=== PATIENT | female | born 1960 | race Caucasian/White ===

== ENCOUNTER 2021-02-28 12:07 | Day surgery (SDC) | payer MEDICARE ==
[~2021-02-28] VITALS: Ht 160 cm; Wt 56.0 kg
[~2021-02-28 12:07] MED LIST: ALBU90OI INH; AMLO10 PO; CLON.5 PO; Calcium Carbon500 MG PO; LEVOTHYROXINE PO; MONT10T PO; Nexium40 MG PO; PREG75 PO; RINVOQ ER15 MG PO; RISE35 PO; TRAZ50 PO; ZYRTEC10 M2 PO
== END 2021-02-28 15:02 | disposition home or self-care (01) ==
LOC: ORSCSDS 12:07
PROVIDERS: Internal Medicine Gastroenterology
PROC: 0DB98ZX Excision of Duodenum, Via Natural or Artificial Opening Endoscopic, Diagnostic (ICD-10-PCS; principal; 2021-02-28 13:30)
PROC: 0DBK8ZX Excision of Ascending Colon, Via Natural or Artificial Opening Endoscopic, Diagnostic (ICD-10-PCS; principal; 2021-02-28 13:30)
PROC: 0DBE8ZX Excision of Large Intestine, Via Natural or Artificial Opening Endoscopic, Diagnostic (ICD-10-PCS; principal; 2021-02-28 13:30)
PROC: 0DB68ZX Excision of Stomach, Via Natural or Artificial Opening Endoscopic, Diagnostic (ICD-10-PCS; principal; 2021-02-28 13:30)
DX: K21.9 Gastro-esophageal reflux disease without esophagitis (principal); R19.4 Change in bowel habit; D12.2 Benign neoplasm of ascending colon; K20.80 Other esophagitis without bleeding; I10 Essential (primary) hypertension; K64.8 Other hemorrhoids; K44.9 Diaphragmatic hernia without obstruction or gangrene; M06.9 Rheumatoid arthritis, unspecified; F17.210 Nicotine dependence, cigarettes, uncomplicated; Z79.899 Other long term (current) drug therapy
CPT/HCPCS: 88305; 88342; J2250; J2704; J7120

== ENCOUNTER 2022-02-04 10:34 | Emergency (ER) | payer MEDICARE ==
[~2022-02-04] VITALS: Ht 160 cm; Wt 61.2 kg
[2022-02-04] MEDS ORDERED: MONT4 PO (11:18)
[2022-02-04] MEDS ORDERED: PAROEX473 ML MM (11:18)
[2022-02-04] MEDS ORDERED: TRAM50 (11:18)
[2022-02-04] MEDS ORDERED: Atarax10 MG PO (11:20)
[2022-02-04] MEDS ORDERED: PILO5 PO (11:21)
[2022-02-04 12:15] LABS: Free Thyroxine 0.99 ng/dL (0.70-1.60)
[2022-02-04 12:19] LABS: Albumin, Blood 3.9 g/dL (3.4-5.0); Bilirubin, Total 0.3 mg/dL (0.1-1.0); Bun/Creatinine Ratio 20.3 (12.0-20.0); Creatinine, Blood 0.84 mg/dL (0.40-1.00); Potassium, Blood 3.6 mmol/L (3.5-5.5); Thyroid Stimulating Hormone 2.82 uIU/mL (0.360-4.800); Total Protein, Blood 7.9 g/dL (6.4-8.2)
[2022-02-04 13:37] LABS: BASOPHILS ABSOLUTE AUTO 0.04 K/mm3 (0.00-0.23); BASOPHILS PERCENT AUTO 1 % (0-2); EOSINOPHILS ABSOLUTE AUTO 0.08 K/mm3 (0.00-0.68); EOSINOPHILS PERCENT AUTO 1 % (0-6); Hematocrit 35.1 % (33.0-51.0); IMMATURE GRAN ABSOLUTE AUTO 0.01 K/mm3 (0.00-0.10); IMMATURE GRAN PERCENT AUTO 0 % (0-1); LYMPHOCYTES ABSOLUTE AUTO 2.26 K/mm3 (0.84-5.20); LYMPHOCYTES PERCENT AUTO 41 % (21-46); MONOCYTES ABSOLUTE AUTO 0.52 K/mm3 (0.16-1.47); MONOCYTES PERCENT AUTO 9 % (4-13); Mean Corpuscular HGB 28.2 pg (26.0-34.0); Mean Corpuscular HGB Conc 34.2 g/dL (31.5-36.5); Mean Corpuscular Volume 82 fL (80-100); Mean Platelet Volume 10.6 fL (9.1-12.4); NEUTROPHILS ABSOLUTE AUTO 2.64 K/mm3 (1.96-9.15); NEUTROPHILS PERCENT AUTO 48 % (41-73); Platelet Count 455 K/mm3 (150-400); Red Blood Cell Count 4.26 M/mm3 (3.80-5.20); White Blood Cell Count 5.55 K/mm3 (4.00-11.30)
== END 2022-02-04 14:16 | disposition home or self-care (01) ==
LOC: ER 10:34
PROVIDERS: Student in an Organized Health Care Education/Training Program
DX: G89.29 Other chronic pain (principal); E86.0 Dehydration; M35.00 Sjogren syndrome, unspecified; K59.00 Constipation, unspecified; I10 Essential (primary) hypertension; F41.9 Anxiety disorder, unspecified; F17.210 Nicotine dependence, cigarettes, uncomplicated; Z88.6 Allergy status to analgesic agent; Z88.8 Allergy status to other drugs, medicaments and biological substances; Z79.899 Other long term (current) drug therapy
CPT/HCPCS: 36415; 80053; 84439; 84443; 85025; A9270; J7030

== ENCOUNTER 2023-02-08 18:45 | Emergency (ER) | payer MEDICARE ==
[~2023-02-08] VITALS: Ht 162.6 cm; Wt 65.3 kg
[2023-02-08 20:15] VITALS: BP 137/74
== END 2023-02-08 20:39 | disposition home or self-care (01) ==
LOC: ER 18:45
DX: R56.9 Unspecified convulsions (principal); I10 Essential (primary) hypertension; F17.210 Nicotine dependence, cigarettes, uncomplicated; Z79.899 Other long term (current) drug therapy
CPT/HCPCS: 93005; 93010; 96365; 96375; 99284-25; J1953; J2060; J7030

== ENCOUNTER → 2023-02-08 | Outpatient (CLI) | payer MEDICARE ==
[~2023-02-08] MED LIST changes: +Atarax10 MG PO; +LEVE500 PO; +MONT4 PO; +PAROEX473 ML MM; +PILO5 PO; +TRAM50
[2023-02-08 18:51] LABS: BASOPHILS ABSOLUTE AUTO 0.03 K/mm3 (0.00-0.23); BASOPHILS PERCENT AUTO 1 % (0-2); EOSINOPHILS ABSOLUTE AUTO 0.04 K/mm3 (0.00-0.68); EOSINOPHILS PERCENT AUTO 1 % (0-6); Hematocrit 34.2 % (33.0-51.0); Hemoglobin 12.3 g/dL (11.5-16.0); IMMATURE GRAN ABSOLUTE AUTO 0.01 K/mm3 (0.00-0.10); IMMATURE GRAN PERCENT AUTO 0 % (0-1); LYMPHOCYTES ABSOLUTE AUTO 2.23 K/mm3 (0.84-5.20); LYMPHOCYTES PERCENT AUTO 39 % (21-46); MONOCYTES ABSOLUTE AUTO 0.74 K/mm3 (0.16-1.47); MONOCYTES PERCENT AUTO 13 % (4-13); Mean Corpuscular HGB 30.8 pg (26.0-34.0); Mean Corpuscular Volume 86 fL (80-100); NEUTROPHILS ABSOLUTE AUTO 2.68 K/mm3 (1.96-9.15); NEUTROPHILS PERCENT AUTO 47 % (41-73); Platelet Count 412 K/mm3 (150-400); RDW Coefficient Variation 18.3 % (11.7-14.2); RDW Standard Deviation 56.3 fL (35.1-46.3); White Blood Cell Count 5.73 K/mm3 (4.00-11.30)
[2023-02-08 18:55] LABS: Albumin, Blood 3.9 g/dL (3.4-5.0); Bilirubin, Total 0.4 mg/dL (0.1-1.0); Bun/Creatinine Ratio 7.8 (12.0-20.0); Calcium, Blood 9.5 mg/dL (8.5-10.1); Creatinine, Blood 0.9 mg/dL (0.40-1.00); Globulin, Blood 3.8 g/dL (2.2-4.0); Potassium, Blood 3.3 mmol/L (3.5-5.5); Total Protein, Blood 7.7 g/dL (6.4-8.2)
== END | disposition home or self-care (01) ==
LOC: LAB 18:40 → LAB SHORT 18:40
PROVIDERS: Emergency Medicine
DX: R51.9 Headache, unspecified (principal); Z72.89 Other problems related to lifestyle
CPT/HCPCS: 80053; 85025; G0480

== ENCOUNTER 2023-07-22 14:15 | Emergency (ER) | payer MEDICARE ==
[~2023-07-22] VITALS: Ht 162.6 cm; Wt 68.0 kg
[2023-07-22 14:56] LABS: BASOPHILS ABSOLUTE AUTO 0.04 K/mm3 (0.00-0.23); BASOPHILS PERCENT AUTO 1 % (0-2); EOSINOPHILS ABSOLUTE AUTO 0.04 K/mm3 (0.00-0.68); EOSINOPHILS PERCENT AUTO 1 % (0-6); Hematocrit 35.6 % (33.0-51.0); Hemoglobin 12.4 g/dL (11.5-16.0); IMMATURE GRAN ABSOLUTE AUTO 0.02 K/mm3 (0.00-0.10); IMMATURE GRAN PERCENT AUTO 0 % (0-1); LYMPHOCYTES ABSOLUTE AUTO 1.36 K/mm3 (0.84-5.20); LYMPHOCYTES PERCENT AUTO 17 % (21-46); MONOCYTES PERCENT AUTO 10 % (4-13); Mean Corpuscular HGB 29.9 pg (26.0-34.0); Mean Corpuscular HGB Conc 34.8 g/dL (31.5-36.5); Mean Corpuscular Volume 86 fL (80-100); Mean Platelet Volume 9.9 fL (9.1-12.4); NEUTROPHILS ABSOLUTE AUTO 5.64 K/mm3 (1.96-9.15); NEUTROPHILS PERCENT AUTO 71 % (41-73); Platelet Count 430 K/mm3 (150-400); RDW Coefficient Variation 16.1 % (11.7-14.2); RDW Standard Deviation 50.1 fL (35.1-46.3); Red Blood Cell Count 4.15 M/mm3 (3.80-5.20)
[2023-07-22 14:58] LABS: Albumin/Globulin Ratio 1.1 (0.8-1.8); Bilirubin, Total 0.5 mg/dL (0.1-1.0); Bun/Creatinine Ratio 7.4 (12.0-20.0); Calcium, Blood 9.7 mg/dL (8.5-10.1); Creatinine, Blood 0.82 mg/dL (0.40-1.00); Globulin, Blood 3.8 g/dL (2.2-4.0); Potassium, Blood 3.9 mmol/L (3.5-5.5); Total Protein, Blood 7.8 g/dL (6.4-8.2)
[2023-07-22 15:23] LABS: Influenza A, PCR NEGATIVE (NEGATIVE); Influenza B, PCR NEGATIVE (NEGATIVE); Resp Syncytial Virus, PCR NEGATIVE (NEGATIVE); SARS-Cov-2 (COVID-19) PCR, MMC NEGATIVE (NEGATIVE)
[2023-07-22] MEDS ORDERED: AMOX-CLAV 875-1 EAC5 PO (18:42)
[2023-07-22] MEDS ORDERED: Ventolin/Prove6.7 GM INH (18:42)
[2023-07-22] MEDS ORDERED: Diflucan150 MG PO (18:42)
[2023-07-22] MEDS ORDERED: Lamictal150 MG PO (18:43)
[2023-07-22] MEDS ORDERED: TRAM50 PO (18:43)
[2023-07-22] MEDS ORDERED: ONDA4ODT SL (18:44)
[2023-07-22] MEDS ORDERED: ESOMEPRAZOLE MA40 MG PO (18:44)
[2023-07-22] MEDS ORDERED: CYCLOSPORINE1 EACH BOTHEYES (18:45)
[2023-07-22] MEDS ORDERED: KLONOPIN0.5 M9 PO (18:45)
[2023-07-22] MEDS ORDERED: PRAZ1 PO (18:48)
[2023-07-22] MEDS ORDERED: Halcion0.25 MG PO (19:40)
[2023-07-22 19:55] VITALS: BP 139/61
== END 2023-07-22 19:58 | disposition home or self-care (01) ==
LOC: ER 14:15
PROVIDERS: Emergency Medicine
DX: F43.9 Reaction to severe stress, unspecified (principal); I10 Essential (primary) hypertension; F43.10 Post-traumatic stress disorder, unspecified; M06.9 Rheumatoid arthritis, unspecified; Z79.899 Other long term (current) drug therapy; Z88.6 Allergy status to analgesic agent; Z88.8 Allergy status to other drugs, medicaments and biological substances
CPT/HCPCS: 0241U; 71046; 80053; 83690; 84484; 85025; 93005; 93010; 99285-25

== ENCOUNTER 2023-07-24 20:33 | Inpatient (IN) | payer MEDICARE ==
[~2023-07-24] VITALS: Ht 165.1 cm; Wt 66.9 kg
[~2023-07-24 20:33] MED LIST changes: +AMOX-CLAV 875-1 EAC5 PO; +CYCLOSPORINE1 EACH BOTHEYES; +Diflucan150 MG PO; +ESOMEPRAZOLE MA40 MG PO; +Halcion0.25 MG PO; +KLONOPIN0.5 M9 PO; +Lamictal150 MG PO; +ONDA4ODT SL; +PRAZ1 PO; +TRAM50 PO; +Ventolin/Prove6.7 GM INH
[2023-07-24 21:00] LABS: BASOPHILS ABSOLUTE AUTO 0.03 K/mm3 (0.00-0.23); BASOPHILS PERCENT AUTO 1 % (0-2); EOSINOPHILS ABSOLUTE AUTO 0.05 K/mm3 (0.00-0.68); EOSINOPHILS PERCENT AUTO 1 % (0-6); Hematocrit 36.9 % (33.0-51.0); Hemoglobin 12.5 g/dL (11.5-16.0); IMMATURE GRAN ABSOLUTE AUTO 0.02 K/mm3 (0.00-0.10); IMMATURE GRAN PERCENT AUTO 0 % (0-1); LYMPHOCYTES ABSOLUTE AUTO 2.15 K/mm3 (0.84-5.20); LYMPHOCYTES PERCENT AUTO 35 % (21-46); MONOCYTES ABSOLUTE AUTO 0.61 K/mm3 (0.16-1.47); MONOCYTES PERCENT AUTO 10 % (4-13); Mean Corpuscular HGB 29.8 pg (26.0-34.0); Mean Corpuscular HGB Conc 33.9 g/dL (31.5-36.5); Mean Corpuscular Volume 88 fL (80-100); Mean Platelet Volume 9.7 fL (9.1-12.4); NEUTROPHILS ABSOLUTE AUTO 3.24 K/mm3 (1.96-9.15); NEUTROPHILS PERCENT AUTO 53 % (41-73); NRBC ABSOLUTE 0.02 K/mm3 (0.00-0.02); NRBC Auto 0.3 /100 WBC (0.0-0.2); Platelet Count 418 K/mm3 (150-400); RDW Coefficient Variation 16.8 % (11.7-14.2); RDW Standard Deviation 53.8 fL (35.1-46.3)
[2023-07-24] MEDS ORDERED: Dextrose 50% 50 ML Syringe IV ONE (21:20)
[2023-07-24] MEDS ORDERED: Naloxone HCl 1MG / ML 2ML SYR IV ONE (21:20)
[2023-07-24 21:28] LABS: Ethanol (Alcohol), Blood, Med 94 mg/dL; Magnesium, Blood 2.4 mg/dL (1.6-2.4); Salicylate 4.5 mg/dL (2.8-20.0)
[2023-07-24 21:35] LABS: Alanine Aminotransfer (ALT/SGP 29 U/L (12-78); Albumin, Blood 3.7 g/dL (3.4-5.0); Alk Phos 58 U/L (50-136); Anion Gap 6 mmol/L (6-16); Aspartate Aminotrans (AST/SGOT 33 U/L (12-37); Bilirubin, Total 0.2 mg/dL (0.1-1.0); Blood Urea Nitrogen 7 mg/dL (8-24); Bun/Creatinine Ratio 8.2 (12.0-20.0); CO2, Blood 26 mmol/L (21-32); Calcium, Blood 9.4 mg/dL (8.5-10.1); Chloride, Blood 104 mmol/L (98-108); Creatinine, Blood 0.85 mg/dL (0.40-1.00); Globulin, Blood 3.8 g/dL (2.2-4.0); Glomerular Filtration Rate 78 (60-); Glucose, Blood 77 mg/dL (70-99); Potassium, Blood 3.8 mmol/L (3.5-5.5); Sodium, Blood 136 mmol/L (136-145); Total Protein, Blood 7.5 g/dL (6.4-8.2)
[2023-07-24 21:36] LABS: Acetaminophen, Random <2.0 ug/mL (10.0-30.0)
[2023-07-24] MEDS ORDERED: Ondansetron HCl 2 MG / ML 2ML Vial IV ONE (22:05)
[2023-07-24] MEDS ORDERED: NS 1,000 ML IV SCH (22:05)
[2023-07-24] MEDS ORDERED: FLU VACC QS2023-24(6MOS UP)/PF 60 MCG/0.5 ML SYRINGE IM SCH (23:30)
[2023-07-24] MEDS ORDERED: Lactated Ringer's 1,000 ML IV SCH (23:35)
[2023-07-24 23:59] LABS: U Amphetamine Screen Not Detected; U Barbituate Screen Not Detected; U Benzodiazapine Screen Not Detected; U Buprenorphine Screen Not Detected; U Cannabinoids Screen Not Detected; U Cocaine Screen Not Detected; U Methadone Screen Not Detected; U Methamphetamine Screen Not Detected; U Opiates Screen Not Detected; U Oxycodone Screen Not Detected; U Phencyclidine Screen Not Detected
[2023-07-25] VITALS (48 sets, daily range): BP systolic 74–141; BP diastolic 48–122
--- NOTE | 2023-07-25 00:41 | NUR ---
ARRIVAL TO ICU: RECEIVED REPORT FROM LISBETH TORRES. PT ARRIVED TO ICU BED 3 AT 0022 VIA GURNEY. PT SLID ACROSS TO BED WITH ASSISTANCE. PT AWAKENS TO VERBAL STIMULI, ABLE TO ANSWER SOME SIMPLE QUESTIONS BUT VERY SOMNOLENT AND MUMBLES. PT FALLS BACK ASLEEP VERY QUICKLY. PT ON 4L NC WITH SPO2 >95%. LUNG SOUNDS CLEAR/DIM. EQUIPMENT HIRE MANAGER IN PLACE, SR WITH HR 70'S. SBP 120'S. PUREWICK IN PLACE UPON ARRIVAL. PIV TO RAC INFUSING LR AT 150 ML/HR. PT STATES SHE STILL HAS PLANS TO HURT HERSELF WHEN ASKED. SITTER AT THE DOOR.
[2023-07-25] MEDS ORDERED: Lactated Ringer's 1,000 ML IV SCH (04:50)
--- NOTE | 2023-07-25 06:02 | NUR ---
SHIFT SUMMARY: PT CONTINUES TO REMAIN LETHARGIC AT TIMES BUT IS WAKING UP MORE THROUGHOUT THE SHIFT. OPENS EYES TO VERBAL STIMULI, ANSWERING QUESTIONS. PT STATES "I AM UPSET THAT I AM STILL ALIVE". PT CONTINUES TO REMAIN ON 4L NC WITH SPO2 >95%. ETCO2 DIPS DOWN TO THE 20'S, PROVIDER AWARE. PT HAS SHALLOW RESPIRATIONS. LUNG SOUNDS CLEAR/DIM. WEEKEND RECEPTIONIST IN PLACE, SR WITH HR 70'S. SBP 90'S-120'S. DENIES CHEST PAIN/ PRESSURE. PT ABLE TO TRANSFER TO BSC WITH ASSIST, VOIDING YELLOW URINE. NO BM THIS SHIFT. PIV TO RW, INTACT AND SALINE LOCKED. PIC TO RAC, INTACT AND INFUSING LR AT 150 ML/HR. SON REMAINS AT THE BEDSIDE T/O THE SHIFT, PT KEYS GIVEN TO SON PER PT REQUEST. UPDATED TO PLAN OF CARE. 1:1 SITTER AT THE DOOR. WILL REPORT OFF TO ONCOMING RN.
[2023-07-25 06:39] LABS: Albumin, Blood 3.2 g/dL (3.4-5.0); Albumin/Globulin Ratio 0.9 (0.8-1.8); Bilirubin, Total 0.3 mg/dL (0.1-1.0); Bun/Creatinine Ratio 8.5 (12.0-20.0); Calcium, Blood 8.5 mg/dL (8.5-10.1); Creatinine, Blood 0.7 mg/dL (0.40-1.00); Globulin, Blood 3.5 g/dL (2.2-4.0); Magnesium, Blood 2.2 mg/dL (1.6-2.4); Total Protein, Blood 6.7 g/dL (6.4-8.2)
--- NOTE | 2023-07-25 08:23 | NUR ---
ZINA AWAKENED TO VOICE AFTER INITIAL REPORT AT BEDSIDE. INTRODUCTION OF STAFF TO HER, SHE STATES SHE IS "IN SHOCK". SHE KNOWS SHE IS IN THE HOSPITAL AND WHY SHE IS HERE. SHE UNDERSTANDS THE NEED FOR A SITTER AND CONSTANT OBSER VATION. SHE DENIES ANY THOUGHTS TO END HER LIFT AT THIS TIME.
[2023-07-25] MEDS ORDERED: Enoxaparin 40 MG/0.4 ML SYR SC SCH (09:00)
[2023-07-25] MEDS ORDERED: Docusate Sodium 100 MG Cap PO SCH (09:00)
--- NOTE | 2023-07-25 10:28 | NUR ---
"Spiritual Care Visit | Pt. Request Pt. is resting but responds when I enter the room. Pt. is guarded at first, but through theraputic listening the Pt. displays evidence of trust. Ask guided questions about purpose and offer empathy and emotional support. Pt. displayed inreasing levels of trust. Pt. verbalized an overwhelming sense of personal loss and and physical pain. The longer this soil technician listened the more the Pt. displayed openness. Share words of hope and inspiration, took the Pt.s hand and prayed for the Pt. Pt. verbalized gratitude for the spiritual care visit, and welcomed this soil technician to return."
--- NOTE | 2023-07-25 10:49 | NUR ---
ZINA AWAKENS AND GETS UP TO BSC. FEELS A BIT SHAKY AND UNSETTLED. SHE IS TAKEN OFF THE NC AND SATS 93%. SON RETURNS, BRINGS PURSE, PHONE AND NOTEREADER; THESE ITEMS LOCKED IN CABINET IN PT ROOM, PT AND SON WITNESSED. PT SAYS," YOU DIDN'T HAPPEN TO BRING THE GUN AND THE BOTTLE OF PILLS DID YOU?" THEN QUICKLY COMMENTS THAT SHE IS JOKING. SON SAYS, THAT'S NOT NEW. SHE ALWAYS HAS DARK HUMOR.
[2023-07-25 11:56] LABS: BASOPHILS ABSOLUTE AUTO 0.02 K/mm3 (0.00-0.23); BASOPHILS PERCENT AUTO 0 % (0-2); EOSINOPHILS ABSOLUTE AUTO 0.08 K/mm3 (0.00-0.68); EOSINOPHILS PERCENT AUTO 2 % (0-6); Hematocrit 33.5 % (33.0-51.0); Hemoglobin 11.1 g/dL (11.5-16.0); IMMATURE GRAN ABSOLUTE AUTO 0.01 K/mm3 (0.00-0.10); IMMATURE GRAN PERCENT AUTO 0 % (0-1); LYMPHOCYTES ABSOLUTE AUTO 2.21 K/mm3 (0.84-5.20); LYMPHOCYTES PERCENT AUTO 41 % (21-46); MONOCYTES ABSOLUTE AUTO 0.73 K/mm3 (0.16-1.47); MONOCYTES PERCENT AUTO 14 % (4-13); Mean Corpuscular HGB 29.3 pg (26.0-34.0); Mean Corpuscular HGB Conc 33.1 g/dL (31.5-36.5); Mean Corpuscular Volume 88 fL (80-100); Mean Platelet Volume 9.9 fL (9.1-12.4); NEUTROPHILS ABSOLUTE AUTO 2.31 K/mm3 (1.96-9.15); NEUTROPHILS PERCENT AUTO 43 % (41-73); Platelet Count 414 K/mm3 (150-400); RDW Standard Deviation 54.4 fL (35.1-46.3); Red Blood Cell Count 3.79 M/mm3 (3.80-5.20); White Blood Cell Count 5.36 K/mm3 (4.00-11.30)
[2023-07-25] MEDS ORDERED: Nicotine 21 MG PATCH TOP SCH (12:00)
--- NOTE | 2023-07-25 15:08 | NUR ---
ZINA'S SON HAS DECIDED TO RETURN TO [place], HE UNDERSTANDS THAT HIS MOTHER IS NOT MEDICALLY CLEAR AT THIS TIME AND THAT SHE WILL BE STAYING OVERNIGHT. SHE REMAINS ON A 2 MD HOLD AND WILL HAVE ATTEMPTS AT PLACEMENT ONCE SHE IS CLEARED MEDICALLY. PT IS SLEEPING AT THIS TIME, VSS.
--- NOTE | 2023-07-25 17:19 | NUR ---
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 SHE HASN'T BEEN COMFORTABLE. SHE IS GIVEN THE OPTION OF AN EGGCRATE MATTRESS PAD AND SHE IS VERY RELIEVED WHEN THIS IS APPLIED. SHE CONTINUES TO REFUSE TO EAT FOOD AND IS DRINKING MINIMALLY. IV FLUIDS CONTINUE TO INFUSE AT 75ML/HR. UP TO BSC FOR URINATION WITH GOOD RESULTS. PT CONTINUES TO EXPRESS HER DISSATISFACTION AT HAVING TO STAY AT THE HOSPITAL.
[2023-07-25] MEDS ORDERED: PILOCARPINE HCL 5 MG PO PRN (17:30)
[2023-07-25] MEDS ORDERED: Ondansetron 4 MG SoluTab SL PRN (17:35)
[2023-07-25] MEDS ORDERED: Prazosin HCl 1 MG Cap PO PRN (17:35)
[2023-07-25] MEDS ORDERED: Albuterol HFA200 ACT/6.7 GM INH INH PRN (17:40)
[2023-07-25] MEDS ORDERED: TraMADol HCl 50 MG Tab PO SCH (21:00)
[2023-07-25] MEDS ORDERED: Famotidine 20 MG Tab PO SCH (21:00)
[2023-07-25] MEDS ORDERED: ESOMEPRAZOLE 40 MG PO SCH (21:00)
[2023-07-25] MEDS ORDERED: LamoTRIgine 100 MG Tab PO SCH (21:00)
--- NOTE | 2023-07-25 21:54 | NUR ---
SHIFT ASSESSMENT PT RESTING COMFORTABLY IN BED, WAKES EASILY. PT REMAINS ON 2L NC WHILE SLEEPING. PT PLEASANT IN DEMEANOR AND TALKATIVE. PT EXPRESSED TO RN THAT POOR MANAGEMENT OF CHRONIC PAIN R/T RHEUMATOID ARTHRITIS CONTRIBUTED TO DECISION TO OVERDOSE. PT DOES EXPRESS HOPE THAT IF PAIN COULD BE BETTER MANAGED AT TOLERABLE LEVEL THAT IT WOULD GREATLY IMPROVE QUALITY OF DAILY LIVING. PT STRUGGLES WITH BASIC DAILY TASKS D/T ARTHRITIS AND EXPRESSES FRUSTRATION WITH STRUGGLING TO COMPLETE BASIC TASKS. PT ALSO NOTED SOME DIFFICULTY WITH TRANSPORTATION D/T STRUGGLING TO DRIVE WHICH ALSO IMPACTS ABILITY TO COMPLETE TASKS SUCH GOING TO PAIN CLINIC OR GETTING GROCERIES. DISCUSSED WITH PATIENT POSSIBILITY OF CONSULTING WITH PHYSICIAN WHILE IN INPATIENT TO ADDRESS CONCERNS. PT STATED INABILITY TO COMMUNICATE THIS WITH PHYSICIAN ON ARRIVAL D/T DROWSINESS/EFFECTS OF MEDICATIONS. PT ENDORSES POOR APPETITE AT HOME AT BASELINE, PT HAS HAD POOR INTAKE SINCE ARRIVAL TO HOSPITAL. PT DID EAT REESES PEANUT BUTTER CUP SNACK AROUND 2129. BG AT 1914 WAS 71, PO INTAKE WAS ENCOURAGED AT THAT TIME AND PT DID HAVE A FEW SIPS OF SODA. PT MOOD OVERALL SEEMS POSITIVE AT THIS TIME BUT SIMULTANEOUSLY ANXIOUS/WORRIED FOR FUTURE.
[2023-07-26] VITALS (10 sets, daily range): BP systolic 117–173; BP diastolic 65–103
[2023-07-26 03:12] LABS: BASOPHILS ABSOLUTE AUTO 0.03 K/mm3 (0.00-0.23); BASOPHILS PERCENT AUTO 1 % (0-2); EOSINOPHILS ABSOLUTE AUTO 0.08 K/mm3 (0.00-0.68); EOSINOPHILS PERCENT AUTO 2 % (0-6); Hematocrit 35.8 % (33.0-51.0); Hemoglobin 12.2 g/dL (11.5-16.0); IMMATURE GRAN ABSOLUTE AUTO 0.01 K/mm3 (0.00-0.10); IMMATURE GRAN PERCENT AUTO 0 % (0-1); LYMPHOCYTES ABSOLUTE AUTO 1.49 K/mm3 (0.84-5.20); LYMPHOCYTES PERCENT AUTO 27 % (21-46); MONOCYTES ABSOLUTE AUTO 0.58 K/mm3 (0.16-1.47); MONOCYTES PERCENT AUTO 11 % (4-13); Mean Corpuscular HGB 30.1 pg (26.0-34.0); Mean Corpuscular HGB Conc 34.1 g/dL (31.5-36.5); Mean Corpuscular Volume 88 fL (80-100); Mean Platelet Volume 9.6 fL (9.1-12.4); NEUTROPHILS ABSOLUTE AUTO 3.29 K/mm3 (1.96-9.15); NEUTROPHILS PERCENT AUTO 60 % (41-73); Platelet Count 403 K/mm3 (150-400); RDW Coefficient Variation 16.7 % (11.7-14.2); RDW Standard Deviation 54.1 fL (35.1-46.3); Red Blood Cell Count 4.05 M/mm3 (3.80-5.20); White Blood Cell Count 5.48 K/mm3 (4.00-11.30)
[2023-07-26 03:34] LABS: Albumin, Blood 3.2 g/dL (3.4-5.0); Albumin/Globulin Ratio 0.9 (0.8-1.8); Bilirubin, Total 0.3 mg/dL (0.1-1.0); Bun/Creatinine Ratio 7.6 (12.0-20.0); Creatinine, Blood 0.79 mg/dL (0.40-1.00); Globulin, Blood 3.5 g/dL (2.2-4.0); Magnesium, Blood 2.1 mg/dL (1.6-2.4); Phosphorus, Blood 3.3 mg/dL (2.5-4.9); Potassium, Blood 3.7 mmol/L (3.5-5.5); Total Protein, Blood 6.7 g/dL (6.4-8.2)
--- NOTE | 2023-07-26 06:30 | NUR ---
SHIFT SUMMARY PT REMAINED PLEASANT, ALERT, AND TALKATIVE OVERNIGHT. PT REMAINED ON ROOM AIR, DID NOT REQUIRE FURTHER 02. PT FIND IT DIFFICULT TO GET COMFORTABLE IN THE HOSPITAL BED D/T CHRONIC PAINS, PT GIVEN HEATING PAD TO ASSIST WITH ALLEVIATING DISCOMFORT. PT VERBALIZES WILLINGNESS TO EAT FRUIT IF BLOOD GLUCOSE BECOMES TOO LOW, BUT STATES HAVING NO APPETITE OR DESIRE TO EAT OTHERWISE. PT REMAINED ABLE TO GET UP TO BEDSIDE COMMODE WITH STEADY GAIT, SOME WEAKNESS PRESENT. PT ABLE TO TURN SELF IN BED, BUT NEEDS SOME ASSISTANCE WITH POSITIONING PILLOWS FOR COMFORT, MAINLY D/T LINES/IV BECOMING TANGLED/CAUGHT. PT REMAINS IN A POSITIVE MOOD THIS AM, STATES LOOKING FORWARD TO LEAVING ICU AND TO BE ABLE TO GET UP AND WALK AROUND AGAIN. SITTER REMAINS AT BEDSIDE FOR 1:1
[2023-07-26] MEDS ORDERED: AmLODIPine Besylate 5 MG Tab PO SCH (08:00)
[2023-07-26] MEDS ORDERED: Calcium Carbonate 500 MG Tab Chew PO SCH (09:00)
[2023-07-26] MEDS ORDERED: UPADACITINIB 15 MG PO SCH (09:00)
--- NOTE | 2023-07-26 10:40 | NUR ---
ZINA IS EXPRESSING GUILT AND REGRET WITH HER DECISION TO ATTEMPT TO END HER LIFE. SHE HAS SPOKEN WITH BOTH OF HER BOYS THIS MORNING, MONITORED BY THIS RN. SHE HAD A TEARFUL EPISODE FOLLOWING, THERAPEUTIC LISTENING AND ENCOURAGEMENT GIVEN. PT RECEIVING HER BATH NOW. VITALS REMAIN STABLE.
--- NOTE | 2023-07-26 16:30 | NUR ---
[facility] CALLED TO GET FURTHER INFORMATION ABOUT . SHE IS GIVEN THIS INFORMATION, QUESTIONS ASKED AND ANSWERED.
[2023-07-26 17:11] LABS: Influenza A, PCR NEGATIVE (NEGATIVE); Influenza B, PCR NEGATIVE (NEGATIVE); Resp Syncytial Virus, PCR NEGATIVE (NEGATIVE); SARS-Cov-2 (COVID-19) PCR, MMC NEGATIVE (NEGATIVE)
--- NOTE | 2023-07-26 17:54 | NUR ---
REUBEN GATES CALLED ASKING FOR TO PHONE THE DR. THERE FOR A DR TO DR. A COUPLE OF HOURS AGO THEY WERE GIVEN 'S NUMBER AND SAID THEY HAD BEEN UNABLE TO REACH HIM. CALL MADE TO TO UPDATE. ZINA CONTINUES TO HAVE SITTER 1:1. SHE REMAINS INDEPENDENT IN ROOM. PLEASANT WITH STAFF AND COOPERATIVE WITH CARE. SHE IS ABLE TO STATE THAT SHE IS "RE- GRETFUL OF THE CHOICE SHE HAD MADE AND "APPEARS" TO BE LOOKING FORWARD TO TREATMENT. SOME INFORMATION GIVEN TO PATIENT IN REGARDS TO THE FACILITY.
--- NOTE | 2023-07-26 19:01 | NUR ---
REPORT HAS BEEN GIVEN TO ENA AT [facility] IN [place]. HER SON LEDA HAS BEEN NOTIFIED OF THE TRANSFER AND TO WHAT FACILITY. HER CLOTHIN PAJAMA PANT, 1 SHIRT, 1 UNDERWEAR AND 1 PAIR SOCKS. HER PURSE: CONTAINING HER PHONE, FABRIC STRETCHER, KEYS AND EYEGLASS CASE. HER MEDICATION THAT WAS BROUGHT FROM HOME, 2 BOTTLES VERIFIED WITH PHARMACY AND THE REMAINDER WILL BE GIVEN TO THE SECURE CHOIR ACCOMPANIST. SITTER REMAINS AT BEDSIDE. CHARGE NURSE UPDATED ON CURRENT STATUS.
[2023-07-26 22:25] LABS: LAMOTRIGINE 2.6 ug/mL (3.0-15.0)
[2023-07-27] MEDS ORDERED: TraMADol HCl 50 MG Tab PO PRN (01:40)
[2023-07-27] MEDS ORDERED: Melatonin 5 MG Tablet PO PRN (01:40)
[2023-07-27 03:22] VITALS: BP 131/84
[2023-07-27 03:25] LABS: Hematocrit 38.8 % (33.0-51.0); Mean Corpuscular HGB 29.1 pg (26.0-34.0); Mean Corpuscular HGB Conc 33.5 g/dL (31.5-36.5); Mean Corpuscular Volume 87 fL (80-100); Mean Platelet Volume 9.4 fL (9.1-12.4); Platelet Count 429 K/mm3 (150-400); RDW Coefficient Variation 16.3 % (11.7-14.2); RDW Standard Deviation 52.1 fL (35.1-46.3); Red Blood Cell Count 4.46 M/mm3 (3.80-5.20); White Blood Cell Count 4.84 K/mm3 (4.00-11.30)
[2023-07-27 03:46] LABS: Bun/Creatinine Ratio 11.2 (12.0-20.0); Creatinine, Blood 0.99 mg/dL (0.40-1.00)
[2023-07-27 04:07] LABS: BASOPHILS PERCENT MAN 0 % (0-2); EOSINOPHILS ABSOLUTE MAN 0.04 K/mm3 (0.00-0.68); EOSINOPHILS PERCENT MAN 1 % (0-6); LYMPHOCYTES ABSOLUTE MAN 2.51 K/mm3 (0.84-5.20); LYMPHOCYTES PERCENT MAN 52 % (21-46); MONOCYTES ABSOLUTE MAN 0.43 K/mm3 (0.16-1.47); MONOCYTES PERCENT MAN 9 % (4-13); NEUTROPHILS ABSOLUTE MAN 1.83 K/mm3 (1.96-9.15); SEG NEUTROPHILS PERCENT MAN 38 % (41-73); TOTAL CELLS COUNTED 100
--- NOTE | 2023-07-27 05:54 | NUR ---
PATIENT HAD A DIFFICULT TIME SLEEPING OVERNIGHT. REPORTS ANXIETY ABOUT GOING TO [facility]. DENIES HAVING ANY INTENTIONS OF HARMING HERSELF. VITALS WNL. PATIENT SHOWERED IN THE AM.
[2023-07-27 07:46] VITALS: BP 116/92
[2023-07-27] MEDS ORDERED: Famotidine 20 MG Tab PO SCH (09:00)
[2023-07-27] MEDS ORDERED: TRAM50 PO (10:29)
[2023-07-27] MEDS ORDERED: NICO21TP TOP (10:36)
--- NOTE | 2023-07-27 10:55 | NUR ---
PT A/OX4, PLEASANT AND COOPERATIVE WITH CARE, UP INDEP IN ROOM. MEDICALLY STABLE. DISCHARGED TO [facility] INPT PSYCH. PT TAKEN VIA SECURE TRANSPORT. PT WHEELED OUT WITH RN AND SECURE TRANSPORT. NO SIGN OF DISTRESS. BELONGINGS WITH TRANSPORT. [facility] NOTIFIED OF ETA.
== END 2023-07-27 11:05 | DRG 917 ==
LOC: ER 20:33 → ICUE 23:24
PROVIDERS: Internal Medicine; Student in an Organized Health Care Education/Training Program; ADMIT Student in an Organized Health Care Education/Training Program
DX: T43.212A Poisoning by selective serotonin and norepinephrine reuptake inhibitors, intentional self-harm, initial encounter (principal); G92.8 Other toxic encephalopathy; T42.4X2A Poisoning by benzodiazepines, intentional self-harm, initial encounter; M06.9 Rheumatoid arthritis, unspecified; M35.00 Sjogren syndrome, unspecified; F41.9 Anxiety disorder, unspecified; K21.9 Gastro-esophageal reflux disease without esophagitis; M79.7 Fibromyalgia; F43.10 Post-traumatic stress disorder, unspecified; F17.210 Nicotine dependence, cigarettes, uncomplicated; G89.29 Other chronic pain; I12.9 Hypertensive chronic kidney disease with stage 1 through stage 4 chronic kidney disease, or unspecified chronic kidney disease; N18.30 Chronic kidney disease, stage 3 unspecified; E78.5 Hyperlipidemia, unspecified; F32.A Depression, unspecified; Z11.52 Encounter for screening for COVID-19
CPT/HCPCS: 0241U; 36415; 51701; 80048; 80053; 80175; 81025; 82947; 83735; 84100; 84439; 84443; 85025; 93005; 93010; 94760; 94762; 96374; 96375; 99285-25; A9270; G0480; J1650; J2310; J2405; J7030; J7120

== ENCOUNTER → 2024-07-04 | Outpatient (CLI) | payer MEDICARE ==
[~2024-07-04] MED LIST changes: +NICO21TP TOP
== END ==
LOC: LAB SHORT 15:33 → LAB 15:33
DX: N39.0 Urinary tract infection, site not specified (principal)
CPT/HCPCS: 87077; 87086; 87186